=== PATIENT | female | born 1985 | race Caucasian/White ===

== ENCOUNTER → 2018-09-07 | Outpatient (REF) | payer OTHER | LOC: M SFHCLERA 14:14 | PROVIDERS: ATTEND Physician Assistant | DX: J02.9 Acute pharyngitis, unspecified (principal) ==

== ENCOUNTER → 2018-09-27 | Outpatient (REF) | payer OTHER | LOC: M SFHCLERA 11:13 | PROVIDERS: ATTEND Physician Assistant | DX: J02.9 Acute pharyngitis, unspecified (principal) ==

== ENCOUNTER 2019-04-07 07:31 | Day surgery (SDC) | payer OTHER ==
[~2019-04-07] VITALS: Ht 154.9 cm; Wt 60.3 kg
[~2019-04-07 07:31] MED LIST: ACETAMINOPHEN 650 MG SUPP PR ONE; BCP PO; LIDOCAINE 1% MDV 20ML VIAL SQ PRN; LR 1,000 ML IV ONE
[2019-04-07 08:14] LABS: HEMATOCRIT 38.4 % (36.0-47.0); HEMOGLOBIN 12.2 g/dl (12.0-15.5); MEAN CORPUSCULAR HEMOGLOBIN 29.1 pg (27.0-33.0); MEAN CORPUSCULAR HGB CONC 31.8 g/dl (32.0-36.5); MEAN CORPUSCULAR VOLUME 91.6 fl (80.0-96.0); PLATELET COUNT, AUTOMATED 229 10^3/uL (150-450); RED BLOOD COUNT 4.19 10^6/uL (4.00-5.40); WHITE BLOOD COUNT 6.5 10^3/uL (4.0-10.0)
[2019-04-07 08:42] LABS: BLOOD UREA NITROGEN 14 MG/DL (7-18); CALCIUM LEVEL 8.2 MG/DL (8.5-10.1); CARBON DIOXIDE LEVEL 27 MEQ/L (21-32); CHLORIDE LEVEL 110 MEQ/L (98-107); CREATININE FOR GFR 0.64 MG/DL (0.55-1.30); GLOMERULAR FILTRATION RATE > 60.0 (>60); GLUCOSE, FASTING 85 MG/DL (70-100); HCG, SERUM QUANTITATIVE < 1.0 MIU/ML; POTASSIUM SERUM 4.2 MEQ/L (3.5-5.1); SODIUM LEVEL 141 MEQ/L (136-145)
[2019-04-07] MEDS ORDERED: BUPIVACAINE HCL 0.5% 10 ML VIAL As Ordered ONE ×2 (10:02→10:34)
[2019-04-07] MEDS ORDERED: ACETAMINOPHEN 650 MG SUPP As Ordered ONE (10:10)
[2019-04-07] MEDS ORDERED: dexameTHASONE 4 MG/ML 1ML VIAL (J1100) As Ordered ONE (10:44)
[2019-04-07] MEDS ORDERED: ROCURONIUM BROMIDE 50 MG/5 ML VIAL As Ordered ONE (10:44)
[2019-04-07] MEDS ORDERED: SUGAMMADEX SODIUM 500 MG/5 ML VIAL (BRIDION) As Ordered ONE (10:44)
[2019-04-07] MEDS ORDERED: PROPOFOL 200 MG/20 ML VIAL As Ordered ONE (10:44)
[2019-04-07] MEDS ORDERED: KETOROLAC 60 MG/2 ML VIAL (J1885) As Ordered ONE (10:44)
[2019-04-07] MEDS ORDERED: LIDOCAINE 2% INJ 100 MG/5 ML SDV (FOR ANES.) As Ordered ONE (10:44)
[2019-04-07] MEDS ORDERED: ONDANSETRON 4MG/2ML VIAL (J2405) As Ordered ONE ×2 (10:44→13:42)
[2019-04-07] MEDS ORDERED: MIDAZOLAM INJ 2 MG/2 ML VIAL (J2250) As Ordered ONE (10:44)
[2019-04-07] MEDS ORDERED: fentaNYL 250 MCG/5 ML INJECTION (J3010) As Ordered ONE (10:44)
[2019-04-07] MEDS ORDERED: HYDROmorphone HCL 2 MG/ML 1ML VIAL (J1170) As Ordered ONE (10:46)
[2019-04-07] MEDS ORDERED: LR 1,000 ML IV SCH (11:45)
[2019-04-07] MEDS ORDERED: fentaNYL 100 MCG/2 ML INJECTION (J3010) IV PRN (11:45)
[2019-04-07] MEDS ORDERED: ONDANSETRON 4MG/2ML VIAL (J2405) IV PRN (11:45)
[2019-04-07] MEDS ORDERED: HYDROMORPHONE HCL 0.5 MG/ 0.5 ML SYRINGE (J1170 PER 1) IV PRN (11:45)
[2019-04-07] MEDS ORDERED: PERCOCET 5MG/325MG TAB PO PRN (11:45)
[2019-04-07 14:00] VITALS: BP 110/67
[2019-04-07] MEDS ORDERED: KETOROLAC 30 MG/ML VIAL (J1885) IV PRN (18:00)
--- NOTE | 2019-04-15 21:25 | RO ---
DATE OF PROCEDURE: 04/07/2019 PREOPERATIVE DIAGNOSIS: Satisfied parity. POSTOPERATIVE DIAGNOSIS: Satisfied parity OPERATION PROPOSED: Laparoscopic bilateral salpingectomy. OPERATION PERFORMED: Laparoscopic bilateral salpingectomy and excision of left hydatid of Morgagni. SURGEON: Dr. Steve Portillo OVERLOCK COLLAR SETTER: Dr. Talley ANESTHESIA: General plus local anesthetic for intraperitoneal procedures. ESTIMATED BLOOD LOSS: Less than 20 mL. DESCRIPTION OF PROCEDURE: After adequate time-out, prepped and draped in the lithotomy position, Franco catheter in the bladder draining clear urine, acetaminophen suppository 1300 mg per rectum, sequentials in place. No antibiotics required. We noticed in the introital area that she had a large gaping introitus, lax perineal muscles from bilateral lateral wall defects from delivery. She also had a significant cervical prolapse, grade 2. With a weighted speculum in the vagina and a single-tooth tenaculum on the anterior lip of the cervix, uterus was sounded to a depth of 9 cm, and a uterine elevator was placed in the endocervical canal. Reprepping and draping, small subumbilical incision was made. Direct visualization with a 5 mm scope, direct entry into the abdomen. No evidence of perforation, hemorrhage or bleeding. Panoramic review revealed the right upper quadrant was normal, the left upper quadrant was normal, the stomach was deflated. The uterus was bulky, anteverted, anteflexed. The left and right round ligaments were in place but were very lax. The right and left ovaries appeared to be normal. The uterosacrals appeared to be more intact on the left side than on the right side, but it was still present and dominant. The ureters were identified to be normal. There was no evidence of endometriosis or adhesions. A 5 mm port was placed on the right side, a 5 mm port was placed on the left side. Grasping the left tube at the fimbriated end, we noticed there was a hydatid of Morgagni and with the EndoSure, we removed the left tube right to the cornual end with good hemostasis as well as removing the hydatid of Morgagni. This was sent off to pathology under separate cover. We then went ahead and elevated the right tube and then using the EndoSure, we went ahead and removed the right tube all the way to the fimbriated end with good hemostasis noted. With that done, we deflated to 4 mm of pressure. No evidence of active bleeding. We then deflated to 0 pressure, removed the two 5 mm ports, the 3 mm port, deep stitch in the umbilical area, subcuticular stitch at the skin, Marcaine 0.25%, 2 mL in each incisional site with skin tapes. We then went ahead and removed the Franco catheter, the uterine elevator and the single-tooth tenaculum, and the patient was sent to recovery in good condition.
== END 2019-04-07 14:05 | disposition home or self-care (01) ==
LOC: M SDC 07:31
PROVIDERS: ATTEND Obstetrics & Gynecology
DX: N83.8 Other noninflammatory disorders of ovary, fallopian tube and broad ligament (principal); Z30.2 Encounter for sterilization; Q50.5 Embryonic cyst of broad ligament; R05 Cough; M54.5 Low back pain; Z79.3 Long term (current) use of hormonal contraceptives
CPT/HCPCS: 36415; 58661; 58662; 80048; 84702; 85027; 88302; J1100; J1170; J1885; J2250; J2405; J3010